=== PATIENT | female | born 1995 | race Two or more races ===

== ENCOUNTER → 2022-04-02 14:27 | Outpatient (REF) | payer MEDICAID, SELFPAY ==
--- NOTE | 2022-04-02 15:00 | CA_ITS ---
Transthoracic Echocardiogram Patient (Last, First, Middle): Taylor Coreas, Gender: Female Date of : 1995 Age: 27 Procedure Date: 04/02/2022 Procedure Type: Transthoracic Echocardiogram Location: OP Height: 154.94 cm Weight: 61.69 kg BSA: 1.60 m2 Heart Rate: bpm BP: 130 / 70 mmHg Clinical Nursing Intern: Referring MD: Kristie Hurtado [employer] Symptoms: Z86.79 PERSONAL HISTORY OF CIRCULATORY SYSTEM Study Quality: Fair ECG Rhythm: Sinus Conclusions: - The left ventricular systolic function is normal. The visually estimated ejection fraction is between 55-60%. - No obvious valvular pathology seen on this study. Findings Left Ventricle Normal left ventricular cavity size. There is normal left ventricular wall thickness. The left ventricular systolic function is normal. The visually estimated ejection fraction is between 55-60%. There is no evidence of regional wall motion abnormalities. Diastolic function is normal for age. Right Ventricle Normal right ventricular cavity size and systolic function. Atria Both atria are normal in size. There is no evidence of interatrial shunt by color Doppler. Aortic Valve The aortic valve was not well visualized. There is no aortic valve stenosis. There is no aortic valve regurgitation. Mitral Valve The mitral valve appears normal. There is no mitral valve regurgitation. There is no mitral valve stenosis. Pulmonic Valve The pulmonic valve is likely normal. Tricuspid Valve Normal tricuspid valve structure. There is trace tricuspid valve regurgitation. There is no evidence of pulmonary hypertension. Great Vessels The aorta was not well visualized. The aortic annulus and sinuses of valsalva are normal in size. Venous The inferior vena cava is normal in size and collapses greater than 50% with inspiration. Pericardium/Pleural There is no evidence of pericardial effusion. Prior Study Comparison No prior study available for comparison. Recommendations, Care & Conclusions No obvious valvular pathology seen on this study. Measurements 2D Linear Measurements IVSd: 0.76 0.6-0.9/0.6-1.0 cm LVIDd: 3.38 3.9-5.3/4.2-5.9 cm LVIDd Index: 2.11 2.4-3.2/2.2-3.1 cm/m2 LVIDs: 2.43 2.0-3.6 cm LVPWd: 0.67 0.7-1.1 cm Ao Root: 2.50 2.1-3.5 cm LA Diam: 2.30 2.7-3.8/3.0-4.0 cm LAIDs Index: 1.44 1.5-2.3 cm/m2 LV Mass: 75.58 67-162/88-224 g LV Mass Index: 47.24 43-95/49-115 g/m2 LVOT Diam: 1.80 3.0+(-)1.3 cm 2D Systolic Function EF 4C: 50.40 >55% EF 2C: 64.20 >55% EF BiP: 57.70 >55% Mitral Valve MV Pk E: 0.95 MV PK A: 0.81 MV Decel Time: 153.00 E/A: 1.20 E'Lateral: 18.70 E'Medial: 13.10 E/E' Med: 7.30 E/E' Lat: 5.10 PHT: 45.00 MVA PHT: 4.89 Decel Swisher: 6.21 Aortic Valve AoV Pk Gaudencio: 1.28 AoV Mn Gaudencio: 0.95 AoV VTI: 0.25 AoV Pk Grad: 7.00 Aov Mn Grad: 4.00 KENNA Cont.VTI: 1.89 LVOT LVOT Pk Gaudencio: 1.04 LVOT Mn Gaudencio: 0.66 LVOT VTI: 0.19 LVOT Pk Grad: 4.00 LVOT Mn Grad: 2.00 LVOT Diam: 1.80 LVOT Area: 2.54 Diastolic Function MV Pk E: 0.95 MV Pk A: 0.81 E/A: 1.20 E'Medial: 13.10 E/E' Med: 7.30 E' Laterial: 18.70 E/E' Lat: 5.10 Right Ventricle TAPSE (mm): 26.00 TVS' Gaudencio: 11.00 Tricuspid Valve TR Pk Gaudencio: 2.11 TR Pk Grad: 18.00 RA Press: 3.00 RVSP: 21.00 Great Vessels Aorta Ao Root-2D: 2.50 2.0-3.7 cm Pulmonary Valve PV Pk Gaudencio: 0.94 Peak PV Grad: 4.00 Updated in Other Vendor System with Status of Final [place] MD electronically signed on 04/03/2022 9:38:21 AM with status of Final
== END ==
LOC: HO.CARD 14:27
PROVIDERS: PCP Registered Nurse; Visit Provider Registered Nurse
DX: I34.1 Nonrheumatic mitral (valve) prolapse (principal); Z86.79 Personal history of other diseases of the circulatory system
CPT/HCPCS: 93306

== ENCOUNTER 2025-05-10 18:50 | Outpatient (REF) | payer MEDICAID, SELFPAY ==
--- OUTSIDE RECORDS SUMMARY | 2025-05-10 14:30 | XMS_ITS | Encounter Summary ---
Demographics Address [address] [place] [address] Home Phone Work Phone Mobile Phone Email Address Preferred Language es Marital Status Unknown Christianity Affiliation Unknown Race White Ethnic Group Unknown Author Organization [employer] Address [address] [place] [address] Care Team Providers Care Workplace Rehabilitation Officer Name Role Phone Rena Quiles Primary Care Provider [phone] Reason for Visit * Reason Comments Annual Exam Encounter Details Date Type Department Care Team ([facility] st Contact Info) Description 05/10/2025 2:30 PM EST Office Visit [facility] [address] [place] [address] Rena Quiles ANP [address] [place] [address] Healthcare maintenance (Primary Dx); Rash; Encounter for immunization; Screening examination for STI; Nonimmune to hepatitis B virus Social History Tobacco Use Types Packs/Day Years Used Date Smoking Tobacco: Never Smokeless Tobacco: Never Tobacco Cessation:Counseling Given: Not Answered Depression Answer Date Recorded Patient Health Questionnaire-9 Score 0 05/10/2025 Patient Health Questionnaire-9 Score 0 05/10/2025 Last PHQ-9: Questionnaire Data Not on file 1 07/10/2024 Housing Stability Answer Date Recorded What is your housing situation today? I have galo barnett 05/03/[address] you li ve. Do you have problems with any of the following? None of the above 05/03/2025 Food Insecurity Answer Date Recorded Within the past 12 months, y ou worried that your food would run out before you got money to buy more: Never True 05/03/2025 Within the past 12 months,th e food you bought just didn't last and you didn't have enough money to get more: Never True Transportation Answer Date Recorded In the past 12 months, has l ack of transportation kept you from medical appts, meetings, work or from getting things needed for daily living? No 05/03/2025 Utilities Answer Date Recorded In the past 12 months, has t he electric, gas, oil or water company threatened to shut off services in your home? No 05/03/2025 Depression Answer Date Recorded Patient Health Questionnaire-2 Score 0 05/10/2025 Internet Access Answer Date Recorded Internet Access Q1 Yes 05/03/2025 Internet Access Q2 Not on file 05/03/2025 Comments Unknown Intention Date Recorded No desire to become (finding) 1 07/10/2024 Sex and Gender Information Value Date Recorded Sex Assigned at Female 04/16/2022 10:40 AM EDT Legal Sex Female 10:40 AM EDT Gender Identity Female 04/16/2022 10:40 AM EDT Sexual Orientation Straight 04/16/2022 10 :40 AM EDT documented as of this encounter Last Filed Vital Signs Vital Sign Reading Time Taken Comments Blood Pressure 108/64 05/10/2025 2:32 PM EST Pulse 87 05/10/2025 2:32 PM EST Temperature 36.8 C (98.3 F) 05/10/2025 2:32 PM EST Respiratory Rate 14 05/10/2025 2:32 PM EST Oxygen Saturation 98% 05/10/2025 2:32 PM EST Inhaled Oxygen Concentration - - Weight 59.4 kg (131 lb) 05/10/2025 2:32 PM EST Height 154.9 cm (5' 1 ) 05/10/2025 2:32 PM EST Body Mass Index 24.75 05/10/2025 2:32 PM EST documented in this encounter Functional Status * Over the past 2 weeks, how often have you been bothered by any of the following problems? Question Answer Date of Assessment Author Patient Health Questionnaire -2 Score 0 05/10/2025 2:34 PM EST Paz Carrion MA * Little interest or pleasure in doing things Answer Date of Assessment Author Not at all 05/10/2025 2:34 PM EST Taryn Carrion MA * Feeling down, depressed, or hopeless Answer Date of Assessment Author Not at all 05/10/2025 2:34 PM EST Taryn Carrion MA * Trouble falling or staying asleep, or sleeping too much Answer Date of Assessment Author Not at all 05/10/2025 2:34 PM Taryn Jacinto MA * Feeling tired or having little energy Answer Date of Assessment Author Not at all 05/10/2025 2:34 PM Taryn Jacinto MA * Poor appetite or overeating Answer Date of Assessment Author Not at all 05/10/2025 2:34 PM Taryn Jacinto MA * Feeling bad about yourself - or that you are a failure or have let yourself or your family down Answer Date of Assessment Author Not at all 05/10/2025 2:34 PM Taryn Jacinto MA * Trouble concentrating on things, such as reading the newspaper or watching television Answer Date of Assessment Author Not at all 05/10/2025 2:34 PM Taryn Jacinto MA * Moving or speaking so slowly that other people could have noticed? Or the opposite - being so fidgety or restless that you have been moving around a lot more than usual. Answer Date of Assessment Author Not at all 05/10/2025 2:34 PM Taryn Jacinto MA * Thoughts that you would be better off or hurting yourself in some way Answer Date of Assessment Author Not at all 05/10/2025 2:34 PM Taryn Jacinto MA * Patient Health Questionnaire-9 Score Answer Date of Assessment Author 0 05/10/2025 2:34 PM Taryn Jacinto MA documented as of this encounter Progress Notes * NATAN Leyva - 05/10/2025 2:30 PM EST Images from the original note were not included. SUBJECTIVE: Taylor Appiah is a 30 y.o. year old female who presents for routine physical exam. Denies recent illness, injury, or hospitalization. PMH mitral valve prolapse as child w/ no valvular pathology on 2021 echo Acute Concerns: Rash on belly x 4d, itchy. No new soaps/lotions/creams. No one else in house w/ same. Would like STI testing. Pap [facility] years ago PMH: Hx of mitral valve prolapse in childhood. No h/o surgery or interventions in [place]. Fam hx: Maternal grandmother Coronary artery disease Mother Asthma Sister Bipolar Lives w/ kids. BCM BTL. Non-smoker Social History Social History Narrative Not on file Problem List[1] Surgical History[2] Family History[3] Review of Systems Constitutional: Negative for chills and fever. HENT: Negative for congestion and sore throat. Respiratory: Negative for cough and shortness of breath. Cardiovascular: Negative for chest pain. Gastrointestinal: Negative for constipation and diarrhea. Endocrine: Negative for polydipsia, polyphagia and polyuria. Genitourinary: Negative for difficulty urinating, dyspareunia and dysuria. Skin: Positive for rash. Neurological: Negative for weakness. Psychiatric/Behavioral: Negative for sleep disturbance. OBJECTIVE: Vitals: 05/10/25 1432 BP: 108/64 BP Location: Left arm Patient Position: Sitting BP Cuff Size: Adult Pulse: 87 Resp: 14 Temp: 98.3 ??F (36.8 ??C) TempSrc: Oral SpO2: 98% Weight: 131 lb (59.4 kg) Height: 5' 1 (1.549 m) Physical Exam Constitutional: General: She is not in acute distress. Appearance: Normal appearance. She is not ill-appearing. HENT: Head: Normocephalic and atraumatic. Right Ear: Tympanic membrane and ear canal normal. Left Ear: Tympanic membrane and ear canal normal. Nose: Nose normal. Eyes: General: No scleral icterus. Extraocular Movements: Extraocular movements intact. Pupils: Pupils are equal, round, and reactive to light. Cardiovascular: Rate and Rhythm: Normal rate and regular rhythm. Pulmonary: Effort: Pulmonary effort is normal. No accessory muscle usage or respiratory distress. Breath sounds: Normal breath sounds. Lymphadenopathy: Cervical: No cervical adenopathy. Skin: General: Skin is warm and dry. Comments: Macular erythematous rash to abd as above Neurological: Mental Status: She is alert and oriented to person, place, and time. Psychiatric: Mood and Affect: Mood normal. Behavior: Behavior normal. ASSESSMENT/PLAN Taylor was seen today for annual exam. Diagnoses and all orders for this visit: Healthcare maintenance (Primary) Doing well. Unemployed. Lives w/ kids. Safe at home. We will req pap result [facility]x 20[facility]. BCM BTL STI testing today Hep B and flu IZ today Dental up to date per pt - CBC auto differential; Future - Comprehensive Metabolic Panel; Future Rash ?etiology, appears most consistent w/ contact derm, does not appear herpetic, never had vesicles orblisters per pt, does not hurt, does not appear fungal but if not responsive to triamcinolone will consider topical antifungal. If not improving, RTC in next 2 weeks. Use hypoallergenic/fragrance free soaps/lotions/detergents. - triamcinolone (Kenalog) 0.1 % cream; Use twice daily for at least 2 weeks Encounter for immunization - HEPLISAV-B VACCINE ADULT 19 yrs + - FLU VACCINE TRIVALENT [id number] (Fluarix) 19 yrs+ Screening examination for STI - Chlamydia/N. Gonorrhoeae RNA, TMA, Throat; Future - Hepatitis C Antibody with Reflex to HCV, RNA, Quantitative, Real-Time PCR; Future - HIV-1/2 Antigen and Antibodies, Fourth Generation, with Reflexes; Future - Syphilis Screen; Future Nonimmune to hepatitis B virus Heplisav #1 today Follow Up: 1 mo rash Paz ANDREWS provided Danish interpretation. Medications Ordered Prior to Encounter[4] [1] Patient Active Problem List Diagnosis Abnormal uterine bleeding Pharyngitis, streptococcal, acute Tonsillar hypertrophy [2] History reviewed. No pertinent surgical history. [3] Family History Problem Relation Name Age of Onset Asthma Mother Mental illness Sister bipolar Heart disease Maternal Grandmother [4] Current Outpatient Medications on File Prior to Visit Medication Sig Dispense Refill acetaminophen (Tylenol) 500 MG tablet Take 2 tablets (1,000 mg) by mouth every 6 (six) hours if needed for moderate pain or fever for up to 25 doses. 50 tablet 0 cetirizine (ZyrTEC) 10 MG tablet TAKE 1 TABLET BY MOUTH EVERY MORNING 90 tablet 0 famotidine (Pepcid) 20 MG tablet TAKE 1 TABLET BY MOUTH TWICE DAILY IN THE MORNING AND AT BEDTIME IF NEEDED FOR HEARTBURN 180 tablet 0 fluticasone (Flonase) 50 MCG/ACT nasal spray Administer 2 sprays into each nostril in the morning. Shake gently. Before first use, prime pump. After use, clean tip and replace cap. 16 g 2 ibuprofen 400 MG tablet Take 1 tablet (400 mg) by mouth every 6 (six) hours if needed for moderate pain or fever for up to 30 doses. 30 tablet 0 ibuprofen 600 MG tablet Take 1 tablet by mouth if needed in the morning, at noon, in the evening, and at bedtime. ketotifen (Zaditor) 0.025 % ophthalmic solution Administer 1 drop into both eyes 2 times daily. 10 mL 1 SUMAtriptan (Imitrex) 25 MG tablet TAKE 1 TO 2 TABLETS BY MOUTH AT ONSET OF MIGRAINE, MAY REPEAT ONCE AFTER 2 HOURS IF NEEDED, DO NOT EXCEED 8 TABLETS / 24 HOURS 18 tablet 0 No current facility-administered medications on file prior to visit. documented in this encounter Plan of Treatment Upcoming Encounters Date Type Department Care Team (Late st Contact Info) Description 06/21/2025 2:30 PM EST Immunization [address] [address] 07/13/2025 9:15 AM EST Office Visit [facility] [address] [place] [phone] Rena Quiles ANP [address] [place] [phone] Scheduled Orders Name Type Priority Associated Diagnoses Orde r Schedule Chlamydia/N. Gonorrhoeae RNA, TMA, Throat Microbiology Routine Screening examination for STI Expected: 05/10/2025 (Approximate), Expires: 05/10/2026 Hepatitis C Antibody with Reflex to HCV, RNA, Quantitative, Real-Time PCR Lab Routine Screening examination for STI Expected: 05/10/2025 (Approximate), Expires: 05/10/2026 HIV-1/2 Antigen and Antibodies, Fourth Generation, with Reflexes Lab Routine Screening examination for STI Expected: 05/10/2025 (Approximate), Expires: 05/10/2026 Syphilis Screen Lab Routine Screening examination for STI Expected: 05/10/2025 (Approximate), Expires: 05/10/2026 CBC auto differential Lab Routine Healthcare maintenance Expected: 05/10/2025 (Approximate), Expires: 05/10/2026 Comprehensive Metabolic Panel Lab Routine Healthcare maintenance Expected: 05/10/2025 (Approximate), Expires: 05/10/2026 documented as of this encounter Visit Diagnoses Diagnosis Healthcare maintenance- Primary Rash Rash and other nonspecific skin eruption Encounter for immunization Screening examination for STI Nonimmune to hepatitis B virus documented in this encounter Additional Health Concerns Assessment Noted Time PHQ-9 Depression Total Score: 0 05/10/20 25 2:34 PM EST documented as of this encounter Care Teams Workplace Rehabilitation Officer Relationship Specialty Start Date End Date Rena Quiles ANP [address] [place] [id number] PCP - General Family Medicine 03/26/23 documented as of this encounter
--- OUTSIDE RECORDS SUMMARY | 2025-05-10 20:38 | XMS_ITS | Clinical Summary ---
Author Organization [employer] Address [address] [place] [address] 7[address] [place] [address] Care Team Providers Care Measurement Coordinator Name Role Phone Kb Rena GAMA Primary Care Provider [phone] Allergies No known active allergies Medications ibuprofen 600 MG tablet Take 1 tablet by mouth if needed in the morning, at noon, in the evening, and at bedtime. 3 Active fluticasone (Flonase) 50 MCG/ACT nasal sprayIndication s:Seasonal allergic rhinitis, unspecified trigger Administer 2 sprays into each nostril in the morning. Shake gently. Before first use, prime pump. After use, clean tip and replace cap. 16 g 2 3 Active ketotifen (Zaditor) 0.025 % ophthalmic solutionIndicat ions:Seasonal allergic rhinitis, unspecified trigger Administer 1 drop into both eyes 2 times daily. 10 mL 1 3 Active acetaminophen (Tylenol) 500 MG tablet Take 2 tablets (1,000 mg) by mouth every 6 (six) hours if needed for moderate pain or fever for up to 25 doses. 50 tablet 4 Active SUMAtriptan (Imitrex) 25 MG tabletIndicatio ns:Chronic migraine without aura without status migrainosus, not intractable TAKE 1 TO 2 TABLETS BY MOUTH AT ONSET OF MIGRAINE, MAY REPEAT ONCE AFTER 2 HOURS IF NEEDED, DO NOT EXCEED 8 TABLETS / 24 HOURS 18 tablet 5 Active cetirizine (ZyrTEC) 10 MG tabletIndicatio ns:Seasonal allergic rhinitis, unspecified trigger TAKE 1 TABLET BY MOUTH EVERY MORNING 90 tablet 5 Active famotidine (Pepcid) 20 MG tabletIndicatio ns:Heartburn TAKE 1 TABLET BY MOUTH TWICE DAILY IN THE MORNING AND AT BEDTIME IF NEEDED FOR HEARTBURN 180 tablet 5 Active triamcinolone (Kenalog) 0.1 % creamIndication s:Rash Use twice daily for at least 2 weeks 45 g 5 Active ibuprofen 400 MG tablet Take 1 tablet (400 mg) by mouth every 6 (six) hours if needed for moderate pain or fever for up to 30 doses. 30 tablet 4 05/10/20 25 Discontin ued(Thera py completed ) Active Problems Problem Noted Date Diagnosed Date Tonsillar hypertrophy 10/30/2023 Assessment & Plan (10/30/2023 11:18 AM EDT): - refer to ENT Resolved Problems Problem Noted Date Diagnosed Date Resolved Date Pharyngitis, streptococcal, acute 10/29/2023 05/10/2025 Assessment & Plan (10/30/2023 11:18 AM EDT): -Recurrent, 3 positive tests in last 5 months, with symptoms -Tonsillar hypertrophy -Patient is unable to swallow pill due to enalrged tonsil, will give Bicillin IM 1.2 million units single dose, and will refer her to ENT due to multiple infections and enlarged tonsils Abnormal uterine bleeding 02/13/2022 Encounters Date Type Department Care Team Description 05/10/2025 2:30 PM EST Office Visit [facility] [address] [place] [address] [phone] Rena Quiles ANP Healthcare maintenance (Primary Dx); Rash; Encounter for immunization; Screening examination for STI; Nonimmune to hepatitis B virus 05/10/2025 Travel 05/07/2025 Telephone [facility] [address] [place] [phone] Cindy Gaspar MA 05/03/2025 Patient Outreach [facility] [address] [place] [phone] Rena Quiles ANP Pre-visit Planning (SDOH Screening negative and Tobacco screening negative) 02/16/2025 Refill [facility] [address] [place] [address] Rena Quiles ANP Seasonal allergic rhinitis, unspecified trigger; Heartburn from Last 3 Months Immunizations Immunization Administration Dates Next Due HepB-CpG 05/10/2025 Influenza injectable quadrivalent preservative f ree 05/27/2023,03/14/2022 Influenza, IIV3, injectable 05/24/2020 Influenza, seasonal, injectable, preservative fr ee 05/10/2025 MMR 02/09/2022,12/10/2020 Tdap 02/09/2022,09/20/2020 Family History Medical History Relation Name Comments Heart disease Maternal Grandmother Asthma Mother Mental illness Sister bipolar Relation Name Status Comments Maternal Grandmother Mother Sister Social History Tobacco Use Types Packs/Day Years Used Date Smoking Tobacco: Never Smokeless Tobacco: Never Tobacco Cessation:Counseling Given: Not Answered Depression Answer Date Recorded Patient Health Questionnaire-9 Score 0 05/10/2025 Patient Health Questionnaire-9 Score 0 05/10/2025 Last PHQ-9: Questionnaire Data Not on file 1 07/10/2024 Housing Stability Answer Date Recorded What is your housing situation today? I have [place] 05/03/[address] you [...] Orientation Straight 04/16/2022 10 :40 AM EDT Last Filed Vital Signs Vital Sign Reading [...] Mass Index 24.75 05/10/2025 2:32 PM EST Plan of Treatment Upcoming Encounters Date Type Department Care Team (Late st Contact Info) Description 06/21/2025 2:30 PM EST Immunization [facility] [address] [place] [phone] 07/13/2025 9:15 AM EST Office Visit [facility] [address] [place] [phone] Rena Quiles ANP [address] [place] [phone] Health Maintenance Due Date Last Done Comments HPV Vaccines (1 - 3-dose series) 01/01/2011 COVID-19 Vaccine (3 - season) 2025 04/29/2021, 04/07/2021 Hepatitis B Vaccines (2 of 2 - CpG 2-dose series) 06/07/2025 05/10/2025 SDOH Screening 05/03/2026 05/03/2025 Alcohol/Substance Use Screening 05/10/2026 05/10/2025 Depression Screening 05/10/2026 05/10/2025, 05/10/20 25 Disability Screening 05/10/2026 05/10/2025 Family Planning (PISQ) 05/10/2026 05/10/2025 Tobacco Screening 05/10/2026 05/10/2025 Pap Smear 06/01/2026 06/01/2023 DTaP/Tdap/Td Vaccines (3 - Td or Tdap) 02/10/2032 02/09/2022, 09/20/2020 Zoster Vaccines (1 of 2) 01/01/2046 RSV Patients and Patients Aged 60 years or older (1 - 1-dose 75+ series) 01/01/2071 HIV Screening Completed 05/27/2023 Influenza Vaccine Completed 05/10/2025, , 03/14/2022, Additional history exists HIB Vaccines Aged Out No longer eligi ble based on patient's age to complete this topic Hepatitis A Vaccines Aged Out No long er eligible based on patient's age to complete this topic IPV Vaccines Aged Out No longer eligi ble based on patient's age to complete this topic Meningococcal B Vaccine Aged Out No l onger eligible based on patient's age to complete this topic Meningococcal Vaccine Aged Out No matthias danette eligible based on patient's age to complete this topic Pneumococcal Vaccine: Pediatrics (0 to 5 Years) and At-Risk Patients (6 to 49) Years Aged Out No longer eligible based on patient's age to complete this topic RSV under 20 months Aged Out No longe r eligible based on patient's age to complete this topic Rotavirus Vaccines Aged Out No longer eligible based on patient's age to complete this topic Procedures Procedure Name Priority Date/Time Associated Diagnosis Comments PAP/HPV Routine 06/01/2023 HIV 1/2 ANTIGEN/ANTIBODY, FOURTH GENERATION W/RFL Routine 05/27/2023 2:37 PM EST Routine screening for STI (sexually transmitted infection) from Last 3 Months or Most Recently Relevant to Health Maintenance Results * Hm Pap Smear (06/01/2023) Pap Negative for intraephithelial lesion or malignancy Negative for intraephithelial lesion or malignancy, Other us Historical Provider HEALTH MAINTENANCE Final Result * HIV-1/2 Antigen and Antibodies, Fourth Generation, with Reflexes (05/27/2023 2:37 PM EST) HIV AB/AG Nonreactive Nonreactive [facility] Comment:HIV-1 p24 Ag and/or HIV-1/HIV-2 Ab not detected.A test result that is nonreactive does not exclude thepossibility of exposure to or infection with HIV-1 and/orHIV-2. Nonreactive results in this assay for individualswith prior exposure to HIV-1 and/or HIV-2 may be due toantigen and antibody levels that are below the limit ofdetection of this assay.The [employer] HIV Ag/Ab Combo assay result andsupplemental assay results should be interpreted inconjunction with the patient's clinical presentation,history and other laboratory results. If the results areinconsistent with clinical evidence, additional testing issuggested to confirm the result. Blood Venous blood specimen / Unknown 05/27/2023 2:37 PM EST 05/27/2023 3:58 PM EST us [facility] BLOOD ORDERABLES Final Resul t [facility] [address] [place] [phone] from Last 3 Months or Most Recently Relevant to Health Maintenance Insurance [facility] [employer] Care Teams Measurement Coordinator Relationship Specialty Start Date End Date Rena Quiles ANP [address] [place] [phone] PCP - General Family Medicine 03/26/23
--- OUTSIDE RECORDS SUMMARY | 2025-05-10 20:38 | XMS_ITS | Data Portability ---
Demographics Address [address] [place] [address] Home Phone Mobile Phone Email Address Preferred Language es Marital Status Jehovah'S Witness Affiliation Unknown Race Unknown Additional Race(s) Other Race Ethnic Group or Author Organization [facility] Address [address] [place] [phone] Care Team Providers Care Brick Stacker Name Role Phone VAISHALI BRIGGS Primary Care Provider Assessment No assessment recorded. Plan of Treatment Reminders Order Date Submit Date Provider Last Modified By Organization Details Last Modified Time Details Appointments None record ed. Lab None record ed. Referral None record ed. Procedures None record ed. Surgeries None record ed. Imaging None record ed. Medication Orders None record ed. Patient TargetsNo targets recorded. Patient InstructionsNo instructions recorded. Reason for Referral None Reported. 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 Medical Equipment None Reported. Medications Name Sig Start Date Stop Date Status Note LastModified by Organization Details LastModified Time amoxicillin 500 mg capsule TAKE 1 CAPSULE BY MOUTH EVERY TWELVE HOURS FOR 10 DAYS active Not Available Not Available No t Available cetirizine 10 mg tablet TAKE 1 TABLET BY MOUTH EVERY DAY IN THE MORNING active Not Available Not Available No t Available sumatriptan 25 mg tablet TAKE 1 TO 2 TABLETS BY MOUTH AT ONSET OF THE MIGRAINE. MAY REPEAT ONCE AFTER 2 HOURS NEEDED DO NOT EXCEED 8 TABLETS IN 24 HOURS active Not Available Not Available No t Available acetaminophen 500 mg tablet TAKE 2 TABLETS BY MOUTH EVERY 6 HOURS NEEDED FOR PAIN OR FEVER active Not Available Not Available No t Available famotidine 20 mg tablet TAKE 1 TABLET BY MOUTH TWICE DAILY IN THE MORNING AND AT BEDTIME IF NEEDED FOR HEARTBURN active Not Available Not Available No t Available ibuprofen 400 mg tablet TAKE 1 TABLET BY MOUTH EVERY 6 HOURS NEEDED FOR PAIN OR FEVER active Not Available Not Available No t Available amoxicillin 875 mg-potassium clavulanate 125 mg tablet TAKE 1 TABLET BY MOUTH TWICE DAILY FOR 10 DAYS active Not Available Not Available No t Available Vitamins Plus Low Iron 27 mg iron-1 mg tablet TAKE 1 TABLET BY MOUTH EVERY DAY active Not Available Not Available No t Available Vitals Date Recorded Body height Provider Name an d Address Organization Details Last Updated DateTime 05/26/2024 154.94 cm Jose Henning [place] - [facility] 05/26/2024 11:47:41 Social History None recorded. Functional Status None recorded. Mental Status None recorded. Family History Nothing Reported. Medical History No medical history recorded. Gynecological HistoryNo gynecological history recorded. Obstetrics History GPAL:G 0 P 0 0 0 0 Past Encounters Encounter ID Performer Location Encounter Start Date Encounter Closed Date Diagnosis/Indication Diagnosis SNOMED-CT Code Diagnosis ICD10 Code Diagnosis IMO Codes Diagnosis Note [id number] ADI RAMÍREZ MD [facility] [address] [phone] 05/26/2024 11:17:18 05/26/2024 13:54:59 Recurrent acute streptococcal tonsillitis [id number] J03.01 At this point I discourage d surgery as she has not had an episode since October. I suggested she call if she has back to back episodes again. Health Concerns Section Related Observation LastModified by Organization Detai ls LastModified Time None Recorded Concern Status LastModified by Organization Details LastModified Time None Recorded Advance Directives Directive None Recorded Payers Insurance Date Sequence Insurance Name Policy Number Policy Vicente Covered Member ID Vicente Member ID Guarantor Name 05/26/2024 1 [place] [facility] Kenny Coreas [id number] Kenny Appiah Notes Date Note Type Note Provider Name and Address Organization Details Recorded Time 05/26/2024 text/html ROS as noted in the HPI From August to October she had strep 4 times. No strep prior to this. Last episode was October. Currently she feels fine. She does not smoke. ADI RAMÍREZ MD [address] [place] [address], [place], [address], [place] - [facility] 05/26/2024 11:54:45 OBGyn Episode No OBEpisode recorded.
--- OUTSIDE RECORDS SUMMARY | 2025-05-10 20:38 | XMS_ITS | Encounter Summary ---
Author Organization [employer] Address [address] [place] [address] [address] [place] [address] Care Team Providers Care Roof Bolter Helper Name Role Phone Kristie Hurtado Zoe ABBASIP Primary Care Provider Kenya Rena Garcia Primary Care Provider [phone] Encounter Details Date Type Department Care Team (Late st Contact Info) Description 07/18/2022 Orders Only [facility] [address] [place] [address] Trena Long LPN Social History Tobacco Use Types Packs/Day Years Used Date Smoking Tobacco: Never Assessed Comments Unknown Sex and Gender Information Value Date Recorded Sex Assigned at Female 04/16/2022 10:40 AM EDT Legal Sex Female 10:40 AM EDT Gender Identity Female 04/16/2022 10:40 AM EDT Sexual Orientation Straight 04/16/2022 10 :40 AM EDT documented as of this encounter Plan of Treatment Upcoming Encounters Date Type Department Care Team (Late Contact Info) Description 06/21/2025 2:30 PM EST Immunization [facility] [address] [place] [address] [phone] 07/13/2025 9:15 AM EST Office Visit [facility] [address] [place] [address] [phone] Rena Quiles ANP [address] [place] [phone] documented as of this encounter Procedures Procedure Name Priority Date/Time Associated Diagnosis Comments CHLAMYDIA/N. GONORRHOEAE RNA, TMA, UROGENITAL Routine 05/27/2023 2:41 PM EST documented in this encounter Results * Chlamydia/N. Gonorrhoeae RNA, TMA, Urogenitial (05/27/2023 2:41 PM EST) CT PCR NOT DETECTED Not Detect. [facility] Comment:A not detected test result does not exclude the possibilityof infection because test results can be affected byimproper specimen collection, concurrent antibiotic therapy,or the number of organisms in the specimen which may bebelow the sensitivity of the test. As with many diagnostictests, results from the Xpert CT/NG assay should beinterpreted in conjunction with other laboratory andclinical data available to the clinician.Xpert CT/NG performance has not been evaluated in patientsless than 14 years of age. The assay should not be used forthe evaluationof suspected sexual abuse or for other medico-legalindications. Additional testing is recommended in anycircumstance when false positive or false negative resultscould lead to adverse medical, social or psychologicalconsequences. NG PCR NOT DETECTED Not Detect. [facility] Comment:A not detected test result does not exclude the possibilityof infection because test results can be affected byimproper specimen collection, concurrent antibiotic therapy,or the number of organisms in the specimen which may bebelow the sensitivity of the test. As with many diagnostictests, results from the Xpert CT/NG assay should beinterpreted in conjunction with other laboratory andclinical data available to the clinician.Xpert CT/NG performance has not been evaluated in patientsless than 14 years of age. The assay should not be used forthe evaluationof suspected sexual abuse or for other medico-legalindications. Additional testing is recommended in anycircumstance when false positive or false negative resultscould lead to adverse medical, social or psychologicalconsequences. 05/27/2023 2:41 PM EST 05/27/2023 5:44 PM EST Narrative [facility] - 05/28/2023 5:05 AM EST Urine [facility] MICROBIOLOGY - GENERAL ORDER BETO Final Result [facility] [address] [place] [address] [phone] documented in this encounter Visit Diagnoses Not on filedocumented in this encounter Care Teams Roof Bolter Helper Relationship Specialty Start Date End Date Kristie Hurtado FNP PCP - General Family Medicine 02/09/22 03/25/23 Rena Quiles ANP [address] [place] [address] PCP - General Family Medicine 03/26/23 documented as of this encounter
--- OUTSIDE RECORDS SUMMARY | 2025-05-10 20:38 | XMS_ITS | Encounter Summary ---
Author Organization [employer] Address [address] [place] [address] Care Team Providers Care Custom Frame Assembler Name Role Phone Rena Quiles Primary Care Provider [phone] Encounter Details Date Type Department Care Team (Late st Contact Info) Description 05/07/2025 Telephone [facility] [address] [place], [place] [phone] Cindy Gaspar MA Social History Tobacco Use Types Packs/Day Years Used Date Smoking Tobacco: Never Smokeless Tobacco: Never Depression Answer Date Recorded Patient Health Questionnaire-9 Score 0 05/27/2023 Patient Health Questionnaire-9 Score 0 05/27/2023 Last PHQ-9: Questionnaire Data Not on file 1 07/28/2022 Housing Stability Answer Date Recorded What is your housing situation today? I have galo banrett 05/03/[address] you li [...] Date Recorded Patient Health Questionnaire-2 Score 0 05/27/2023 Internet Access Answer Date Recorded Internet Access Q1 Yes 05/03/2025 Internet Access Q2 Not on file 05/03/2025 Comments Unknown Sex and Gender Information Value Date Recorded Sex Assigned at Female 04/16/2022 10:40 AM EDT Legal Sex Female 10:40 AM EDT Gender Identity Female 04/16/2022 10:40 AM EDT Sexual Orientation Straight 04/16/2022 10 :40 AM EDT documented as of this encounter Miscellaneous Notes * Telephone Encounter - Cindy Gaspar MA - 05/07/2025 11:19 AM EST Chart Prep Labs: not applicable Images: not applicable Referrals: closed Vaccines due: Covid, Flu, Hep B, and HPV Screenings: not applicable Overdue care gaps: SBIRT, PHQ-9, and Disability screen documented in this encounter Plan of Treatment Upcoming Encounters Date Type Department Care Team (Late st Contact Info) Description 06/21/2025 2:30 PM EST Immunization [address] [address] 07/13/2025 9:15 AM EST Office Visit [facility] [address] [place] [phone] Rena Quiles ANP [address] [place] [phone] documented as of this encounter Visit Diagnoses Not on filedocumented in this encounter Additional Health Concerns Assessment Noted Time PHQ-9 Depression Total Score: 0 05/27/20 1:48 PM EST documented as of this encounter Care Teams Custom Frame Assembler Relationship Specialty Start Date End Date Rena Quiles ANP [address] [place] [phone] PCP - General Family Medicine 03/26/23 documented as of this encounter
--- OUTSIDE RECORDS SUMMARY | 2025-05-10 20:38 | XMS_ITS | Encounter Summary ---
Author Organization [employer] Address [address] [place] [address] Care Team Providers Care Electrical Superintendent Name Role Phone Kb Rena GAMA Primary Care Provider [phone] Encounter Details Date Type Department Care Team (Latest Contact Info) Description 05/10/2025 Travel Social History Tobacco Use Types Packs/Day Years [...] AM EDT documented as of this encounter Functional Status * Over the past 2 weeks, how often have you been bothered by any of the following problems? Question Answer Date of Assessment Author Patient Health Questionnaire -2 Score 0 05/10/2025 2:34 PM Paz Jacinto MA * Little interest or pleasure in doing things Answer Date of Assessment Author Not at all 05/10/2025 2:34 PM Taryn Jacinto MA * Feeling down, depressed, or hopeless Answer Date of Assessment Author Not at all 05/10/2025 2:34 PM Taryn Jacinto MA * Trouble falling or staying asleep, [...] 2:34 PM EST Taryn Carrion MA * Patient Health Questionnaire-9 Score Answer Date of Assessment Author 0 05/10/2025 2:34 PM EST Taryn Carrion MA documented as of this encounter Plan of Treatment Upcoming Encounters Date Type Department Care Team (Late st Contact Info) Description 06/21/2025 2:30 PM EST Immunization [facility] [address] [place] [phone] 07/13/2025 9:15 AM EST Office Visit [address] [address] Rena Quiles ANP [address] [place] [phone] documented as of this encounter Visit Diagnoses Not on filedocumented in this encounter Additional Health Concerns Assessment Noted Time PHQ-9 Depression Total Score: 0 05/10/20 25 2:34 PM EST documented as of this encounter Care Teams Electrical Superintendent Relationship Specialty Start Date End Date Rena Quiles ANP [address] [place] [phone] PCP - General Family Medicine 03/26/23 documented as of this encounter
[2025-05-12 22:29] LABS: C. Trachomatis RNA TMA, Throat NOT DETECTED; N. gonorrhoeae RNA TMA, Throat NOT DETECTED
== END 2025-05-10 18:51 | disposition home or self-care (01) ==
LOC: HO.HHCLNP 18:50
PROVIDERS: Visit Provider Nurse Practitioner Primary Care
DX: Z20.2 Contact with and (suspected) exposure to infections with a predominantly sexual mode of transmission (principal)
CPT/HCPCS: 87491; 87591

== ENCOUNTER 2025-05-21 06:57 | Outpatient (REF) | payer MEDICAID, SELFPAY ==
--- OUTSIDE RECORDS SUMMARY | 2025-05-21 07:00 | XMS_ITS | Encounter Summary ---
Author Organization [employer] Address [address] [place] [address] [address] [place] [address] Care Team Providers Care Shell Machine Operator Name Role Phone Kristie Hurtado Zoe ABBASIP Primary Care Provider Kenya Rena Garica Primary Care Provider [phone] Encounter Details Date Type Department Care Team (Late st Contact Info) Description 07/18/2022 Orders Only [facility] [address] [place] [address] Trena Long LPN Social History Tobacco Use [...] Info) Description 06/21/2025 2:30 PM EST Immunization [facility] [address] [place] [address] [phone] 07/13/2025 9:15 AM EST Office Visit [facility] [address] [place] [address] [phone] Rena Quiles ANP [address] [place] [phone] documented as of this encounter Procedures Procedure Name Priority Date/Time Associated Diagnosis Comments CHLAMYDIA/N. GONORRHOEAE RNA, TMA, UROGENITAL Routine 05/27/2023 2:41 PM EST documented in this encounter Results * Chlamydia/N. Gonorrhoeae RNA, TMA, Urogenitial (05/27/2023 2:41 PM EST) CT PCR NOT DETECTED Not Detect. [facility] Comment:A not detected test result [...] psychologicalconsequences. NG PCR NOT DETECTED Not Detect. [facility] Comment:A not detected test result [...] PM EST 05/27/2023 5:44 PM EST Narrative [facility] - 05/28/2023 5:05 AM EST Urine [facility] MICROBIOLOGY - GENERAL ORDER BETO Final Result [facility] [address] [place] [address] [phone] documented in this encounter Visit Diagnoses Not on filedocumented in this encounter Care Teams Shell Machine Operator Relationship Specialty Start Date End Date Kristie Hurtado FNP PCP - General Family Medicine 02/09/22 03/25/23 Rena Quiles ANP [address] [place] [address] PCP - General Family Medicine 03/26/23 documented as of this encounter
--- OUTSIDE RECORDS SUMMARY | 2025-05-21 07:00 | XMS_ITS | Data Portability ---
Demographics Address [address] [facility] [address] [place] [address] Home Phone Mobile Phone Email Address Preferred Language es Marital Status Holiness Affiliation Unknown Race Unknown Additional Race(s) Other Race Ethnic Group or Author Organization [facility], [facility] Address [address] [place] [phone] Care Team Providers Care Stock Tracer Name Role Phone VAISHALI BRIGGS Primary Care [...] Recorded Time Recurrent acute streptococc al tonsillitis [id number] Active 2023 ADI Guerra MD [address], [phone] [place] [address] [facility] 4 11:50:07 Problem Notes None recorded. Medical [...] [place] - [facility] 05/26/2024 11:47:41 Social History None recorded. Functional Status None recorded. Mental Status None recorded. Family History Nothing Reported. Medical History No medical history recorded. Gynecological HistoryNo gynecological history recorded. Obstetrics History GPAL:G 0 P 0 0 0 0 Past Encounters Encounter ID Performer Location Encounter Start Date Encounter Closed Date Diagnosis/Indication Diagnosis SNOMED-CT Code Diagnosis ICD10 Code Diagnosis IMO Codes Diagnosis Note [id number] ADI RAMÍREZ MD [facility] [address] [phone] 05/26/2024 11:17:18 05/26/2024 13:54:59 Recurrent acute streptococcal tonsillitis [id number] 0525354 J03.01 At this point I discourage d [...] Vicente Member ID Guarantor Name 05/26/2024 1 MEDICAID-OR: [facility] Kenny Coreas [id number] Kenny Appiah Notes Date Note Type Note Provider Name and Address Organization Details Recorded Time 05/26/2024 text/html ROS as noted in the HPI From August to October she had strep 4 times. No strep prior to this. Last episode was October. Currently she feels fine. She does not smoke. ADI RAMÍREZ MD [address] [place] [address], [place], [address], [place] - [facility] 05/26/2024 11:54:45 OBGyn Episode No OBEpisode recorded.
--- OUTSIDE RECORDS SUMMARY | 2025-05-21 07:00 | XMS_ITS | Clinical Summary ---
Author Organization [employer] Address [address] [place] [address] [address] [place] [address] Care Team Providers Care Java Lead Architect Name Role Phone Kb Rena GAMA Primary Care Provider [phone] Allergies No known active allergies Medications ibuprofen [...] for at least 2 weeks 45 g 05/11/2025 3:10 PM EST 5 Active ibuprofen 400 MG tablet Take [...] Description 05/10/2025 2:30 PM EST Office Visit [facility] [address] [place] [phone] Rena Quiles ANP Healthcare maintenance (Primary Dx); Rash; Encounter for immunization; Screening examination for STI; Nonimmune to hepatitis B virus 05/10/2025 Orders Only [facility] [address] [place] [phone] Rena Quiles ANP 05/10/2025 Travel 05/07/2025 Telephone [facility] [address] [place] [phone] Cindy Gaspar [place] 05/03/2025 Patient Outreach [address] [address] Rena Quiles ANP Pre-visit Planning (SDOH Screening negative and Tobacco screening negative) from Last 3 Months Immunizations Immunization Administration [...] Info) Description 06/21/2025 2:30 PM EST Immunization [facility] [address] [place] [phone] 07/13/2025 9:15 AM EST Office Visit [facility] [address] [place] [phone] Rena Quiles ANP [address] [place] [phone] Health Maintenance Due Date Last Done Comments [...] Associated Diagnosis Comments CHLAMYDIA/N. GONORRHOEAE RNA, TMA, THROAT Routine 05/10/2025 3:03 PM EST HM PAP/HPV Routine 06/01/2023 HIV 1/2 ANTIGEN/ANTIBODY, FOURTH GENERATION W/RFL Routine 05/27/2023 2:37 PM EST Routine screening for STI (sexually transmitted infection) from Last 3 Months or Most Recently Relevant to Health Maintenance Results * Chlamydia/N. Gonorrhoeae RNA, TMA, Throat (05/10/2025 3:03 PM EST) C. Trachomatis RNA TMA, Throat NOT DETECTED [facility] N. gonorrhoeae RNA TMA, Throat NOT DETECTED [facility] Comment:REFERENCE RANGE: NOT DETECTEDMethodology: Gear Cutter Mediated Amplification (TMA) to detect RNA.The analytical performance characteristics of this assayhave been determined by [employer]. The modificationshave not been cleared or approved by the FDA. This assay hasbeen validated pursuant to the CLIA regulations and is usedfor clinical purposes.For additional information, please refer tohttps://education.[employer]/faq/QJL260(This link is being provided for informational/educationalpurposes only.)THIS TEST WAS PERFORMED AT:[facility] [id number] [place] [address]IULLZKATHERIN DALE MD,PHD,MARLY 05/10/2025 3:03 PM EST 05/10/2025 6:51 PM EST [facility] MICROBIOLOGY - GENERAL ORDER BETO Final Result [facility] [address] [place] [phone] * Hm Pap Smear (06/01/2023) Pathologist [facility] Pap Negative for intraephithelial lesion or malignancy Negative for intraephithelial lesion or malignancy, Other Historical Provider HEALTH MAINTENANCE Final Result * HIV-1/2 Antigen and Antibodies, Fourth Generation, with Reflexes (05/27/2023 2:37 PM EST) HIV AB/AG Nonreactive Nonreactive [facility] Comment:HIV-1 p24 Ag and/or HIV-1/HIV-2 Ab not detected.A test result that is nonreactive does not exclude thepossibility of exposure to or infection with HIV-1 and/orHIV-2. Nonreactive results in this assay for individualswith prior exposure to HIV-1 and/or HIV-2 may be due toantigen and antibody levels that are below the limit ofdetection of this assay.The [employer] HIV Ag/Ab Combo assay result andsupplemental assay results should be interpreted inconjunction with the patient's clinical presentation,history and other laboratory results. If the results areinconsistent with clinical evidence, additional testing issuggested to confirm the result. Blood Venous blood specimen / Unknown 05/27/2023 2:37 PM EST 05/27/2023 3:58 PM EST [facility] BLOOD ORDERABLES Final Resul t [facility] [address] [place] [address] [phone] from Last 3 Months or Most Recently Relevant to Health Maintenance Insurance [facility] * Guarantor: Taylor Parham Account Type Relation to Patient Date of Phone Billing Address Personal/Family Self [address] [place] [address] * Guarantor: Taylor Parham Account Type Relation to Patient Date of Phone Billing Address Personal/Family Self [address] [place] [address] * Guarantor: Taylor Parham Account Type Relation to Patient Date of Phone Billing Address Personal/Family Self [address] [place] [address] Care Teams Java Lead Architect Relationship Specialty Start Date End Date Rena Quiles ANP [address] [place] [address] PCP - General Family Medicine 03/26/23
[2025-05-21 07:12] LABS: MANUAL DIFF FLAG NO
[2025-05-21 07:50] LABS: Hematocrit 37.3 % (37.0-47.0); Hemoglobin 12.3 g/dl (12.0-16.0); Imm Gran Abs Auto 0.02 X10*3/uL (0.00-0.03); Imm Gran Pct Auto 0.3 % (0.0-0.4); Lymphocytes Absolute Auto 1.7 X10*3/uL (1.2-4.9); Mean Corpuscular HGB Conc 33.0 g/dl (31.0-35.0); Mean Corpuscular Hemoglobin 29.1 pg (27.0-33.0); Mean Corpuscular Volume 88.2 fL (80.0-98.0); NRBC Abs Auto 0.000 X10*3/uL (0.0-0.012); NRBC Pct Auto 0.0 /100WBC (0.0-0.2); Platelet Count 262 X10*3/uL (160-400); Red Blood Count 4.23 X10*6/uL (4.20-5.50); White Blood Count 6.0 X10*3/uL (4.8-10.8)
[2025-05-21 08:36] LABS: Alanine Aminotransferase 24 U/L (0-31); Albumin Level 4.6 g/dL (3.5-5.0); Alkaline Phosphatase 69 U/L (39-117); Anion Gap 14 (12-20); Aspartate Amino Transferase 27 U/L (5-31); Blood Urea Nitrogen 11 mg/dL (9-16); Calcium 9.0 mg/dL (8.4-10.2); Carbon Dioxide 25 mmol/L (22-29); Chloride 106 mmol/L (96-108); Estimated Glomerular Filt Rate > 60; Potassium 3.7 mmol/L (3.3-5.1); Sodium 141 mmol/L (135-145); Total Protein 7.4 g/dL (6.5-8.0)
[2025-05-21 09:14] LABS: HIV Num 1 0.10 S/CO (0.00-0.99); ~HepC Num1 0.11 S/CO (0.00-0.79); ~Hepatitis C Antibody Nonreactive (Nonreactive)
[2025-05-21 09:40] LABS: Syphilis Screen Nonreactive (Nonreactive)
== END 2025-05-21 06:58 | disposition home or self-care (01) ==
LOC: HO.LAB 06:57
PROVIDERS: PCP Nurse Practitioner Primary Care; Visit Provider Nurse Practitioner Primary Care
DX: Z00.00 Encounter for general adult medical examination without abnormal findings (principal); Z11.3 Encounter for screening for infections with a predominantly sexual mode of transmission; Z11.59 Encounter for screening for other viral diseases; Z11.4 Encounter for screening for human immunodeficiency virus [HIV]
CPT/HCPCS: 36415; 80053; 85025; 86780; 86803; 87389